=== PATIENT | male | born 1955 | race Caucasian/White ===

== ENCOUNTER 2022-03-09 21:31 | Emergency (ER) | payer MEDICARE ==
[2022-03-09 23:29] LABS: ALBUMIN 3.7 g/dL (3.4-5.0); BILIRUBIN - TOTAL 0.3 mg/dL (0.2-1.0); BUN/CREAT RATIO (CALC) 16.5 RATIO; CREATININE 1.27 mg/dL (0.67-1.17); GLOBULIN (CALCULATION) 3.3 g/dL; POTASSIUM 3.4 mmol/L (3.5-5.1)
[2022-03-10 00:01] LABS: BILIRUBIN NEGATIVE (NEGATIVE); BLOOD NEGATIVE Ery/uL (NEGATIVE); CLARITY CLEAR (CLEAR); COLOR YELLOW (YELLOW); GLUCOSE (U) NORMAL (NORMAL); LEUKOCYTES NEGATIVE Leu/uL (NEGATIVE); NITRITE NEGATIVE (NEGATIVE); PROTEIN NEGATIVE (NEGATIVE); SPECIFIC GRAVITY >=1.030 (1.001-1.030); UROBILINOGEN 0.2 mg/dL (0.2-1.0)
[2022-03-10 00:11] LABS: BASOPHIL 0.9 % (0-2); EOSINOPHIL 3.3 % (0-7); HGB 16.9 g/dl (13.2-18.0); MCH 32.5 pg (25.0-31.0); MCHC 34.5 g/dL (32.0-36.0); MCV 94.2 fL (78.0-100.0); MPV 9.2 fL (6.0-9.5); NEUTROPHIL 54.4 % (41-80); NRBC 0; PLT 205 K/uL (150-400); RDW 13.6 % (11.5-14.0); WBC 5.7 K/uL (4.0-10.5)
== END 2022-03-10 02:18 | disposition home or self-care (01) ==
LOC: FER 21:31
PROVIDERS: Emergency Medicine
DX: E86.0 Dehydration (principal); R52 Pain, unspecified; I10 Essential (primary) hypertension; J44.9 Chronic obstructive pulmonary disease, unspecified; Z87.891 Personal history of nicotine dependence; Z88.1 Allergy status to other antibiotic agents; Z79.899 Other long term (current) drug therapy; Z20.822 Contact with and (suspected) exposure to COVID-19
CPT/HCPCS: 36415; 80053; 81003; 82550; 85025; J1885; J7030; U0002